=== PATIENT | female | born 1970 | race Caucasian/White ===

== ENCOUNTER 2016-12-05 20:22 | Emergency (ER) | payer SELFPAY ==
[~2016-12-05] VITALS: Ht 170.2 cm; Wt 76.6 kg
[~2016-12-05 20:22] MED LIST: ASPI325T PO; BUSP10 PO; CLOP75 PO; FAMO40TA PO; METO25 PO; SIMV80TA PO
[2016-12-05 20:34] VITALS: BP 182/108; TEMP 98.4; O2SAT 98
[2016-12-05] MEDS ORDERED: PLAV75TA29 PO (20:48)
[2016-12-05] MEDS ORDERED: METO25TA3 PO (20:48)
[2016-12-05] MEDS ORDERED: SIMV5TAB3 PO (20:48)
[2016-12-05] MEDS ORDERED: ASPI1TAB69 PO (20:48)
--- NOTE | 2016-12-05 21:08 | PD ---
HPI Chief Complaint: Fall Time Seen by Provider: 21:05 Travel History International Travel<30 days: No Contact w/Intl Traveler<30days: No Traveled to known affect area: No History of Present Illness HPI Patient comes in complaining of left anterior chest wall pain status post trip and fall hitting a nightstand yesterday. Patient having sharp stabbing pain to her left upper chest cavity since. Pain is worse with deep inspiration certain movement. Patient states 2 days prior that she began coughing that is not helping with her pain, she's been around her father who has been fighting a cold as well. Patient denies any known fevers, nausea, vomiting, back pain, neck pain, shortness of breath, headache, or numbness or tingling anywhere. Patient does have a history of [place] with stent placement and is on Plavix and aspirin reports that she took all of her medications. Patient states she's been taking Tylenol for the chest wall pain since a fall with minimal to no improvement of her symptoms. PFSH Past Medical History Cardiac Catheterization: Yes Cardiovascular Problems: Yes ([place], 7 STENTS PLACED) High Cholesterol: Yes Congestive Heart Failure: No Diabetes: No Hypertension: Yes Myocardial Infarction: Yes ?: Not Past Surgical History Section: Yes Coronary Artery Bypass Graft: No Coronary Stent: Yes (X2) Hysterectomy: Yes Other Surgery: Yes (KINDNEY REMOVAL) Family History Family Myocardial Infarction: Yes (SISTER PASSED FROM [place]) Social History Alcohol Use: No Tobacco Use: Yes (10 CIGARETTES) Substance Use: No Allergies-Medications (Allergen,Severity, Reaction): Coded Allergies: No Known Allergies (Unverified , 12/05/16) Reported Meds & Prescriptions Reported Meds & Active Scripts [place] (Hydrocodone-Acetaminophen) 5-325 mg Tab 1 Tab PO Q8HR PRN Naprosyn (Naproxen) 500 Mg Tab 500 Mg PO Q12HR PRN Reported Simvastatin 5 Mg Tab Unknown Dose PO DAILY Plavix (Clopidogrel Bisulfate) 75 Mg Tab 75 Mg PO DAILY Metoprolol Tartrate 25 Mg Tab Unknown Dose PO DAILY Aspirin 81 Mg Tabdr 81 Mg PO DAILY Review of Systems Except as stated in HPI: all other systems reviewed are Neg Physical Exam Narrative GENERAL: Well-developed, overly nourished, in no acute distress, and non-ill appearing. SKIN: Warm and dry. Ecchymosis noted left upper anterior chest wall patient states she hit the nightstand. There is no crepitus or step-off noted. HEAD: Atraumatic. Normocephalic. EYES: Pupils equal and round. EOMI. No scleral icterus. No injection or drainage. ENT: No nasal bleeding or discharge. Mucous membranes pink and moist. NECK: Trachea midline. Supple. No nuclear rigidity. CARDIOVASCULAR: Regular rate and rhythm. No murmur appreciated. Radial pulses 2+ intact and equal bilaterally. RESPIRATORY: No accessory muscle use. No respiratory distress. Scant rhonchi noted left middle lobe. Patient speaking in full sentences without difficulty. GASTROINTESTINAL: Abdomen soft, non-tender, nondistended. Hepatic and splenic margins not palpable. No pulsatile mass. MUSCULOSKELETAL: No obvious deformities. No clubbing. No cyanosis. No edema. Full range of motion. NEUROLOGICAL: Awake and alert. No obvious cranial nerve deficits. Motor grossly within normal limits. Normal speech. PSYCHIATRIC: Appropriate mood and affect; insight and judgment normal. Data Data Last Documented VS Vital Signs Date Time Temp Pulse Resp B/P Pulse Ox O2 Delivery O2 Flow Rate FiO2 12/05/16 22:06 Room Air 12/05/16 22:06 90 16 180/98 98 12/05/16 20:34 98.4 Orders Electrocardiogram (12/05/16 21:02) Basic Metabolic Panel (Bmp) (12/05/16 21:02) Ckmb (Isoenzyme) Profile (12/05/16 21:02) Complete Blood Count With Diff (12/05/16 21:02) Magnesium (Mg) (12/05/16 21:02) Prothrombin Time / Inr (Pt) (12/05/16 21:02) Act Partial Throm Time (Ptt) (12/05/16 21:02) Troponin I (12/05/16 21:02) Ecg Monitoring (12/05/16 21:02) Iv Access Insert/Monitor (12/05/16 21:02) Oximetry (12/05/16 21:02) Oxygen Administration (12/05/16 21:02) Sodium Chloride 0.9% Flush (Ns Flush) (12/05/16 21:15) Chest, Pa & Lat (12/05/16 21:02) Morphine Inj (Morphine Inj) (12/05/16 21:15) Sodium Chlorid 0.9% 500 Ml Inj (Ns 500 M (12/05/16 21:15) Ondansetron Inj (Zofran Inj) (12/05/16 21:15) Resp Incentive Spirometry (12/05/16 ) Labs Laboratory Tests Test 12/05/16 21:14 White Blood Count 6.4 TH/MM3 Red Blood Count 4.53 MIL/MM3 Hemoglobin 14.7 GM/DL Hematocrit 43.1 % Mean Corpuscular Volume 95.1 FL Mean Corpuscular Hemoglobin 32.5 PG Mean Corpuscular Hemoglobin 34.2 % Concent Red Cell Distribution Width 13.1 % Platelet Count 194 TH/MM3 Mean Platelet Volume 9.1 FL Neutrophils (%) (Auto) 51.4 % Lymphocytes (%) (Auto) 40.8 % Monocytes (%) (Auto) 5.9 % Eosinophils (%) (Auto) 1.3 % Basophils (%) (Auto) 0.6 % Neutrophils # (Auto) 3.2 TH/MM3 Lymphocytes # (Auto) 2.6 TH/MM3 Monocytes # (Auto) 0.4 TH/MM3 Eosinophils # (Auto) 0.1 TH/MM3 Basophils # (Auto) 0.0 TH/MM3 CBC Comment DIFF FINAL Differential Comment Prothrombin Time 10.2 SEC Prothromb Time International 0.9 RATIO Ratio Activated Partial 28.2 SEC Thromboplast Time Sodium Level 142 MEQ/L Potassium Level 3.6 MEQ/L Chloride Level 109 MEQ/L Carbon Dioxide Level 27.5 MEQ/L Anion Gap 6 MEQ/L Blood Urea Nitrogen 15 MG/DL Creatinine 0.91 MG/DL Estimat Glomerular Filtration 67 ML/MIN Rate Random Glucose 124 MG/DL Calcium Level 8.9 MG/DL Magnesium Level 1.9 MG/DL Total Creatine Kinase 61 U/L Troponin I LESS THAN 0.02 NG/ML MDM Medical Decision Making Medical Screen Exam Complete: Yes Emergency Medical Condition: Yes Interpretation(s) EKG reviewed by Dr. Hewitt shows sinus rhythm with ventricular rate of 82. No STEMI. Differential Diagnosis Pneumothorax, hemothorax, pneumonia, pericarditis, acute [place], tension pneumothorax, other Narrative Course The patient suffered a minor chest wall contusion. There is no clinical evidence to suggest intrathoracic injury nor cardiac injury at this time. The patient has no significant pain, shortness of breath or dyspnea. The patient moves air well without difficulty. Heart sounds are audible without rubs, murmurs or gallops. There is no palpable crepitus. Pulses are symmetrical and strong. There is no significant tenderness over the lower chest to suggest injury to the liver nor spleen. Chest Xray was normal without evidence of fracture, pneumothorax or hemothorax. The mediastinum appeared within normal limits. EKG and subsequent monitoring revealed no ectopy, st/t abnormalities, arrhythmias or abnormal intervals. Diagnosis was discussed with the patient. The patient is to return if develops any worsening pain difficulty breathing, or if coughs up blood or develops fever. Patient agrees with plan and was recommended to follow up with their regular physician. Patient in no obvious distress upon re-evaluation. All pertinent laboratory/ Radiology result(s) discussed with patient. Patient was asked if they wanted to speak to my attending, which the patient did not wish to do at this time. Discussed patient with Dr. Hewitt, prior to discharge, who is in agreement with plan of care and disposition. Any questions/concerns in reference to patient diagnosis/condition discussed and clarified prior to patient's discharge. Reinforced sheer importance of close follow up with patient's primary physician or primary care clinic. Instructed patient to return to ED immediately, if symptoms return/worsen. Pt showed understanding of above instructions. Further instructions and recommendations were detailed in discharge paperwork. Pt ambulated without difficulty out of ED at discharge. Diagnosis Primary Impression: Chest wall contusion Qualified Code: S20.212A - Chest wall contusion, left, initial encounter Patient Instructions: Chest Wall Pain (GEN), Contusion in Adults (ED), General Instructions Additional Instructions: Follow-up with your primary care physician in one to 3 days for evaluation. Take all medication as prescribed. Apply ice to affected area 20 minutes per hour as needed for pain. Use incentive spirometer 10 times per hour as instructed to prevent pneumonia. Drink plenty of non-caffeinated and nonalcoholic fluids. Return to the emergency department if symptoms get worse. Med/Other Pt SpecificInfo: Prescription(s) given Scripts Hydrocodone-Acetaminophen ([place])5-325 mg Tab1 Tab PO Q8HR PRN (PAIN GREATER THAN 7) #9 TAB Ref 0 Prov:Michael Hewitt MD 12/05/16 Naproxen (Naprosyn)500 Mg [id number] Mg PO Q12HR PRN (PAIN SCALE 1 TO 10) #10 TAB Ref 0 Prov:Michael Hewitt MD 12/05/16 Disposition: 01 DISCHARGE HOME Condition: Stable Jose Roman Dec 05, 2016 21:08
[2016-12-05 21:15] VITALS: O2SAT 100
[2016-12-05] MEDS ORDERED: MORPHINE SULFATE 4 MG/ML INJ IV PUSH ONE (21:15)
[2016-12-05] MEDS ORDERED: SODIUM CHLORIDE 0.9% FLUSH 5 ML FLUSH IVF PRN (21:15)
[2016-12-05] MEDS ORDERED: SODIUM CHLORID 0.9% 500 ML INJ 500 ML IV ONE (21:15)
[2016-12-05] MEDS ORDERED: ONDANSETRON HCL 4 MG/2 ML VIAL IV PUSH ONE (21:15)
[2016-12-05 21:20] LABS: AUTOMATED NEUTROPHIL # 3.2 TH/MM3 (1.8-7.7); BASOPHIL % 0.6 % (0.0-2.0); EOSINOPHIL # 0.1 TH/MM3 (0-0.4); EOSINOPHIL % 1.3 % (0.0-4.0); HEMATOCRIT 43.1 % (35.0-46.0); HEMO FLAGS DIFF FINAL; LYMPH % 40.8 % (9.0-44.0); LYMPHOCYTE # 2.6 TH/MM3 (1.0-4.8); MEAN CELL VOLUME 95.1 FL (80.0-100.0); MEAN CORPUSCULAR HEMOGLOBIN 32.5 PG (27.0-34.0); MEAN CORPUSCULAR HGB CONC 34.2 % (32.0-36.0); MONO % 5.9 % (0.0-8.0); NEUT % 51.4 % (16.0-70.0); PLATELET COUNT 194 TH/MM3 (150-450); RED BLOOD COUNT 4.53 MIL/MM3 (4.00-5.30); RED CELL DISTRIBUTION WIDTH 13.1 % (11.6-17.2); WHITE BLOOD COUNT 6.4 TH/MM3 (4.0-11.0)
[2016-12-05 21:33] LABS: CHLORIDE 109 MEQ/L (98-107); POTASSIUM 3.6 MEQ/L (3.5-5.1); SODIUM (NA) 142 MEQ/L (136-145)
[2016-12-05 21:37] LABS: ANION GAP 6 MEQ/L (5-15); BICARBONATE 27.5 MEQ/L (21.0-32.0); BLOOD UREA NITROGEN 15 MG/DL (7-18); MAGNESIUM 1.9 MG/DL (1.5-2.5)
[2016-12-05 21:39] LABS: APTT (PATIENT) 28.2 SEC (24.3-30.1); INTERNATIONAL NORMALIZED RATIO 0.9 RATIO; PROTHROMBIN TIME - PATIENT 10.2 SEC (9.8-11.6)
[2016-12-05 21:40] LABS: GLOMERULAR FILTRATION RATE 67 ML/MIN (>89)
[2016-12-05 21:48] LABS: CREATINE KINASE 61 U/L (26-192)
[2016-12-05 22:06] VITALS: BP 180/98; PULSE 90; RESP 16; O2SAT 98
--- NOTE | 2016-12-05 22:17 | RADHPO ---
EXAM DATE/TIME: 12/05/2016 21:10 [facility] COMPARISON: No previous studies available for comparison. INDICATIONS : Fell last night on night stand, complains of left side chest pain. MEDICAL HISTORY : None. SURGICAL HISTORY : None. ENCOUNTER: Initial ACUITY: 2 days PAIN SCORE: 10/10 LOCATION: Left chest FINDINGS: PA and lateral views of the chest demonstrate the lungs to be symmetrically aerated without evidence of mass, infiltrate or effusion. The cardiomediastinal contours are unremarkable. Osseous structure s are intact. CONCLUSION: No acute disease. Kelton Murcia MD on December 05, 2016 at 22:15 Board Certified Radiologist. This report was verified electronically.
[2016-12-05] MEDS ORDERED: NAPR500 PO (22:28)
[2016-12-05] MEDS ORDERED: NORC5TAB PO (22:28)
--- NOTE | 2016-12-06 13:03 | EKG ---
Date Performed: 12/05/2016 Time Performed: 22:14:20 PTAGE: 46 years EKG: Sinus rhythm with 1st degree A-V block Probably early repolarizaton syndrome Since previous tracing, no significa nt change noted Abnormal ECG PREVIOUS TRACING : 08/05/2016 18.18 DOCTOR: Nicola Givens Interpretating Date/Time 12/06/2016 13:02:39
== END 2016-12-05 22:39 | disposition home or self-care (01) ==
LOC: PHEFT 20:22
DX: S20.211A Contusion of right front wall of thorax, initial encounter (principal); I25.2 Old myocardial infarction; I10 Essential (primary) hypertension; E78.00 Pure hypercholesterolemia, unspecified; F17.210 Nicotine dependence, cigarettes, uncomplicated; Z95.5 Presence of coronary angioplasty implant and graft; Z79.02 Long term (current) use of antithrombotics/antiplatelets; W18.09XA Striking against other object with subsequent fall, initial encounter; Y93.9 Activity, unspecified; Y92.9 Unspecified place or not applicable; Y99.9 Unspecified external cause status
CPT/HCPCS: 71020; 80048; 82550; 83735; 84484; 85025; 85610; 85730; 93005; 94150; 96361; 96374; 96375; 99284; J2270; J2405; J7040